=== PATIENT | female | born 1965 | race Caucasian/White ===

== ENCOUNTER 2021-11-20 12:12 | Emergency (ER) | payer BC ==
[~2021-11-20] VITALS: Ht 160 cm; Wt 71.2 kg
[2021-11-20 12:12] VITALS: BP_SYST 102
--- NOTE | 2021-11-20 12:12 | NUR ---
BROUGHT IN BY [facility], PLACED IN BED #1, TRIAGED AND REPORT GIVEN TO LUIS MIGUEL
--- NOTE | 2021-11-20 12:26 | NUR ---
# 20 gauge angiocath placed to right AC. Use of asceptic technique. Opsite placed over site. Blood return noted. Blood for lab drawn from site. Flushed with 10 cc of normal saline. No evidence of infiltration noted. Patient tolerated well.
[2021-11-20] MEDS ORDERED: FAMOTIDINE PF 20 MG/2 ML VIAL IVP ONE (12:30)
[2021-11-20] MEDS ORDERED: DIPHENHYDRAMINE INJ 50 MG/ML VIAL IVP ONE (12:30)
[2021-11-20] MEDS ORDERED: methylPREDNISolone SOD SUCC/PF 62.5 MG/ML VIAL IVP ONE (12:30)
[2021-11-20] MEDS ORDERED: NACL 0.9% 1,000 ML IV ONE (12:30)
--- NOTE | 2021-11-20 12:30 | NUR ---
ER at bedside examining patient.
--- NOTE | 2021-11-20 12:37 | NUR ---
SPOUSE BROUGHT BACK TO BEDSIDE FOR SUPPORT PER REQUEST
--- NOTE | 2021-11-20 12:45 | NUR ---
Pt A&Ox4, VSS, respirations even and unlabored, cap refill <3.
[2021-11-20] MEDS ORDERED: PRED20TA PO (13:15)
[2021-11-20] MEDS ORDERED: DIPH25CA83 PO (13:15)
[2021-11-20] MEDS ORDERED: CLIN-22 PO (13:15)
[2021-11-20] MEDS ORDERED: FAMO20TA8 PO (13:15)
[2021-11-20 14:04] VITALS: BP_SYST 121
--- NOTE | 2021-11-20 14:06 | NUR ---
Patient given written and verbal discharge instructions and verbalizes understanding. ER MD discussed with patient the results and treatment provided. Patient in stable condition. ID arm band removed. IV catheter removed intact and dressing applied, no active bleeding. Rx of Clindamycin, Benadryl, Prednisone, and Pepcid given. Patient educated on pain management and to follow up with PMD. Pain Scale . Opportunity for questions provided and answered. Medication side effect fact sheet provided.
== END 2021-11-20 14:06 | disposition home or self-care (01) ==
LOC: SED 12:12
DX: R06.02 Shortness of breath (principal); R42 Dizziness and giddiness; T36.0X5A Adverse effect of penicillins, initial encounter; Z88.0 Allergy status to penicillin; Y92.89 Other specified places as the place of occurrence of the external cause
CPT/HCPCS: 96361; 96374; 96375; 99284; J1200; J2930; J3490; J7030